=== PATIENT | female | born 1970 | race Caucasian/White ===

== ENCOUNTER 2017-06-18 17:23 | Emergency (ER) | payer OTHER ==
[~2017-06-18] VITALS: Ht 167.6 cm; Wt 82.3 kg
[~2017-06-18 17:23] MED LIST: ALBUAER19 INH; BUSP-8 PO; CALC-48 PO; DIPH1CAP34 PO; FLUO40CA8 PO; LEVO75TA25 PO; THIA1TAB11 PO; ZNF4 PO
[2017-06-18 17:30] VITALS: TEMP 36.6; Ht 167.6 cm; Wt 82.3 kg
[2017-06-18] MEDS ORDERED: AMOX500C3 PO (17:42)
[2017-06-18] MEDS ORDERED: LEVO75TA5 PO (17:42)
[2017-06-18] MEDS ORDERED: NALT50TA5 PO (17:42)
[2017-06-18] MEDS ORDERED: FLUO20CA35 PO (17:42)
[2017-06-18] MEDS ORDERED: VNTHFA/IN INH (17:43)
[2017-06-18] MEDS ORDERED: CEFTRIAXONE SOD INJ 1 GM ADDVIAL IV STA (17:46)
[2017-06-18] MEDS ORDERED: KETOROLAC TROMETHAMINE 30 MG/ML VIAL IV STA (17:46)
[2017-06-18 18:42] VITALS: BP 106/55; PULSE 80; O2SAT 97
--- NOTE | 2017-06-18 18:49 | EMERGENCY ROOM VISIT NOTE ---
History First contact with patient: 17:35 Chief Complaint: DENTAL PAIN Stated Complaint: MOUTH, FACE, NECK AND LEFT EAR PAIN Nursing Triage Summary: left upper dental pain. I had teeth extracted upper left and lower right. I was placed on antibiotics yesterday and I have taken 4 doses but not feeling better. History of Present Illness The patient is a 47 year old female who presents to the Emergency Room with complaints of left upper dental pain and mild facial swelling. The patient reports that she had 2 left maxillary teeth, and 1 right mandibular tooth extracted last Tuesday by an oral surgeon in [place]. The patient reports that late evening, or approximately 48 hours later, she started to develop discomfort. When the pain progressively worsened the following morning, she called her dentist and was provided a prescription for amoxicillin 500 mg 3 times daily. The patient took 2 doses yesterday, and 2 today without any change in symptoms. The patient believes that she does have mild left facial swelling. She denies any fever, headache, throat pain, difficulty swallowing or sinus congestion. The patient has been taking Tylenol for pain, and currently rates her discomfort a 10 out of 10. Review of Systems 10 system review was performed and was negative except for pertinent positives and negatives as indicated in history of present illness Past Medical/Surgical History Medical Problems: (1) Asthma, Unspecified (2) Dysmenorrhea (3) Idiopathic Scoliosis (4) Uterine Leiomyoma Nos Surgical Problems: (1) History of cholecystectomy (2) History of hysterectomy (3) History of wisdom tooth extraction Family History FH: diabetes mellitus FH: heart disease Social History Smoking Status: Current Some Day Smoker Alcohol Use: none Marital Status: Housing Status: lives with family Occupation Status: unemployed Current/Historical Medications Scheduled Amoxicillin (Amoxil), 500 MG PO TID Buspirone Hcl (Buspirone Hcl), 10 MG PO HS Diphenhydramine Hcl (Diphenhydramine Hcl), 50 MG PO HS Fluoxetine (Prozac), 40 MG PO HS Fluoxetine (Prozac), 20 MG PO HS Levothyroxine Sodium (Levothyroxine Sodium), 75 MCG PO DAILY Naltrexone Hcl (Naltrexone Hcl), 1 TAB PO DAILY Tizanidine (Zanaflex ), 4 MG PO HS Scheduled PRN Albuterol Hfa (Ventolin Hfa), 2 PUFFS INH Q4H PRN for SOB/Wheezing Physical Exam Vital Signs Date Time Temp Pulse Resp B/P (MAP) Pulse Ox O2 Delivery O2 Flow Rate FiO2 06/18/17 18:42 80 18 106/55 97 Room Air 06/18/17 17:30 36.6 73 18 143/85 98 Room Air Physical Exam CONSTITUTIONAL: Healthy and well nourished. Alert and oriented X 3 with positive affect. Patient does not appear in any acute distress. HEENT: Normocephalic, atraumatic. Pupils equal, round and reactive. No appreciable left facial edema or erythema noted. Ears and nares are clear. OROPHARYNX: Examination shows several extraction sites of the left maxilla and right mandible. The patient does have mild peripheral erythema about the left maxillary extraction sites. The erythema also slightly extends onto the soft palate. There is no evidence for tonsillar hypertrophy or exudates. No uvular deviation. Negative trismus. No evidence for retropharyngeal abscess or Ignacio 's angina. NECK: Full active range of motion without discomfort. No tracheal deviation. RESPIRATORY: Clear to auscultation bilaterally with no wheezing, crackles, rhonchi or stridor. CARDIOVASCULAR: Regular rate and rhythm with no murmurs, rubs or gallops. INTEGUMENTARY: No rash or other significant dermatologic conditions noted. NEUROLOGIC: Facial sensations are intact. Medical Decision & Procedures Medications Administered Medications (Trade) Dose Ordered Sig/Glenn Route Start Time Stop Time Status Last Admin Dose Admin Ceftriaxone Sodium (Rocephin Inj) 1 gm NOW STAT IV 06/18/17 17:46 06/18/17 17:48 DC 06/18/17 17:58 1 GM Ketorolac Tromethamine (Toradol Inj) 30 mg NOW STAT IV 06/18/17 17:46 06/18/17 17:48 DC 06/18/17 17:58 30 MG ED Course Patient history and physical exam were performed. Nurse's notes were reviewed. Vital signs were reviewed and were normal. The patient is afebrile and not tachycardic. The patient shows evidence for a mild postoperative infection. I did suggest administering intravenous antibiotics and Toradol, and the patient was in agreement. IV access was established, and the patient was administered Rocephin 1 g IV infusion, and Toradol 30 mg IVP. This reduced the patient's pain to a 4 out of 10 at the conclusion of my exam. The patient was instructed to follow-up with her oral surgeon early next week for recheck. She was instructed to return to the emergency department for any progressively worsening pain, swelling, fever or other symptoms such as difficulty swallowing, swelling or other concerning symptoms. She was encouraged alternate ibuprofen and Tylenol as needed for pain. The patient was happy with plan of care, and voiced understanding of all discharge instructions. Review of the [place] Prescription Drug Monitoring Program shows that the patient was on Suboxone last summer. The patient reported early in examination that she did not want any stronger analgesics for her pain. Medical Decision [place] Drug Monitoring Program Search Results: patient reviewed within database, see additional documentation Medication Reconcilliation Current Medication List: was personally reviewed by me Blood Pressure Screening Patient's blood pressure: Normal blood pressure Impression Primary Impression: Postoperative dental infection Departure Information Dispostion Home / Self-Care Forms HOME CARE DOCUMENTATION FORM, IMPORTANT VISIT INFORMATION Patient Instructions My [facility] Additional Instructions Continue with your amoxicillin antibiotics as prescribed by your dentist. Ibuprofen 800 mg and/or Tylenol 1000 mg every 8 hours. You may also alternate these medications for more effective pain relief: Ibuprofen --4 HRS--> Tylenol --4 HRS--> ibuprofen --4 HRS--> Tylenol .... Follow up with your dentist early next week for recheck. Return to the emergency department for any developing fever, throat swelling, difficulty swallowing or other concerning symptoms.
== END 2017-06-18 18:47 | disposition home or self-care (01) ==
LOC: C.EDB 17:25 → C.EDD 18:47
DX: T81.4XXA Infection following a procedure, initial encounter (principal); Y83.9 Surgical procedure, unspecified as the cause of abnormal reaction of the patient, or of later complication, without mention of misadventure at the time of the procedure; Z98.818 Other dental procedure status; J45.909 Unspecified asthma, uncomplicated; M41.20 Other idiopathic scoliosis, site unspecified; Z90.49 Acquired absence of other specified parts of digestive tract; Z90.710 Acquired absence of both cervix and uterus; Z83.3 Family history of diabetes mellitus; F17.210 Nicotine dependence, cigarettes, uncomplicated; Z79.899 Other long term (current) drug therapy